=== PATIENT | male | born 1980 | race African-American/Black ===

== ENCOUNTER 2024-12-23 14:45 | Inpatient (IN) | payer BC ==
[~2024-12-23] VITALS: Ht 172.7 cm; Wt 84.4 kg
[2024-12-23] MEDS: IV NS 0.9% 1,000 ML BAG IV ONE (15:05)
[2024-12-23] MEDS: LEVETIRACETAM (500MG) 1,500 MG in IV NS 0.9% 85 ML IV SCH (15:05)
[2024-12-23 15:14] LABS: PLATELET COUNT (AUTO) 230 K/uL (150-450); RED BLOOD CELL COUNT(AUTO) 4.26 MIL/uL (4.5-6.0); RED CELL DISTRIBUTION WIDTH 13.7 % (11.5-15.0); WHITE BLOOD COUNT (AUTO) 11.5 K/uL (4.3-11.0)
[2024-12-23 15:25] LABS: ASPARTATE AMINOTRANSFERASE 72.0 U/L (15-37); CALCIUM, SERUM 8.9 mg/dL (8.5-10.1); CREATININE 1.2 mg/dL (0.6-1.3); SODIUM SERUM 139.0 mmol/L (136-145); TOTAL PROTEIN, SERUM 7.4 g/dL (6.4-8.2); UREA NITROGEN, BLOOD 13.0 mg/dL (7-18)
[2024-12-23] MEDS: LORAZEPAM INJ 2 MG/ML VIAL IV ONE (16:30)
[2024-12-23] MEDS ORDERED: MAGNESIUM HYDROXIDE 30 ML UDC PO PRN (17:30)
[2024-12-23] MEDS ORDERED: LORAZEPAM INJ 2 MG/ML VIAL IV PRN (17:30)
[2024-12-23] MEDS ORDERED: MAG HYDROX/AL HYDROX/SIMETH 30 ML UDC PO PRN (17:30)
[2024-12-23] MEDS ORDERED: ACETAMINOPHEN 325 MG TABLET PO PRN (17:30)
[2024-12-23] MEDS ORDERED: ONDANSETRON HCL/PF 4 MG/2 ML VIAL IVP PRN (17:30)
[2024-12-23] MEDS ORDERED: Z GUARD REMEDY 4 OZ OINT TP PRN (17:30)
[2024-12-23] MEDS ORDERED: LEVE1000 PO (18:06)
[2024-12-23] MEDS: IV NS 0.9% 1,000 ML IV SCH (18:37)
[2024-12-23 20:00] VITALS: BP 120/70; TEMP 98.8; O2SAT 97
[2024-12-23] MEDS ORDERED: LEVETIRACETAM (500MG) 500 MG/5 ML VIAL IV ONE (20:43)
[2024-12-24] VITALS: BP 115/67; TEMP 98.2; O2SAT 96
[2024-12-24] MEDS: LEVETIRACETAM (250 MG) 250 MG TABLET PO SCH (03:49)
[2024-12-24 04:00] VITALS: BP 111/72; TEMP 97.7; O2SAT 99
[2024-12-24 06:32] LABS: PLATELET COUNT (AUTO) 217 K/uL (150-450); RED BLOOD CELL COUNT(AUTO) 3.95 MIL/uL (4.5-6.0); RED CELL DISTRIBUTION WIDTH 14.0 % (11.5-15.0); WHITE BLOOD COUNT (AUTO) 9.8 K/uL (4.3-11.0)
[2024-12-24 06:38] LABS: CALCIUM, SERUM 7.9 mg/dL (8.5-10.1); CREATININE 0.9 mg/dL (0.6-1.3); PHOSPHORUS 2.5 mg/dL (2.5-4.9); SODIUM SERUM 141.0 mmol/L (136-145); UREA NITROGEN, BLOOD 10.0 mg/dL (7-18)
[2024-12-24] MEDS ORDERED: LEVE1000 PO (10:17)
== END 2024-12-24 14:08 | disposition home or self-care (01) | DRG 101 ==
LOC: ER 14:51 → TELE 18:23
PROVIDERS: ATTEND Internal Medicine
DX: G40.909 Epilepsy, unspecified, not intractable, without status epilepticus (principal); D72.829 Elevated white blood cell count, unspecified; F19.11 Other psychoactive substance abuse, in remission; Z79.899 Other long term (current) drug therapy
CPT/HCPCS: 36415; 80048-TC; 80053-TC; 83735-TC; 84100-TC; 84443-TC; 85025-TC; G0378; J1953; J7030